=== PATIENT | male | born 1975 | race Caucasian/White ===

== ENCOUNTER 2021-03-08 10:28 | Emergency (ER) | payer SELFPAY ==
[2021-03-08 10:42] VITALS: BP 148/80; PULSE 92; RESP 16; TEMP 36.8; O2SAT 99
--- NOTE | 2021-03-08 11:30 | ED.WOUNDLAC ---
HPI - Wound/Laceration General Chief Complaint: Wound/Laceration Stated Complaint: rt finger inf Time Seen by Provider: 03/08/21 11:06 Source: patient and RN notes reviewed Mode of arrival: ambulatory Limitations: no limitations History of Present Illness HPI narrative: Patient presents today complaining of swelling and pain to the right fourth finger that has been present for 3 days.4 to 5 days ago he had a crack in his fingernail and bit it off. Subsequently he cleaned a very dirty bathtub and believes this may be where the infection came from. Yesterday he stuck a pin in the area to drain fluid. States the fluid was, blood and white gout. States the area filled back up again this morning. He currently rates his pain /10 and has been taking Tylenol and ibuprofen without relief. Related Data Allergies Allergy/AdvReac Type Severity Reaction Status Date / Time codeine Allergy ITCHING, Verified 03/08/21 10:44 RASH Review of Systems Review of Systems: CONSTITUTIONAL: Denies body aches, fever, chills, or sweats. EYES: Denies visual changes, redness, or discharge. ENT: Denies rhinorrhea, congestion, sore throat, or otalgia. CARDIOVASCULAR: Denies chest pain, palpitations, or edema. RESPIRATORY: Denies cough or dyspnea. GASTROINTESTINAL: Denies abdominal pain, nausea, vomiting, or diarrhea. GENITOURINARY: Denies dysuria or hematuria. SKIN: Denies rash, itching, or wounds. MUSCULOSKELETAL: Denies back pain, or myalgia. +Right fourth finger swelling NEUROLOGIC: Denies headache, numbness, tingling, or weakness. PSYCH: Denies depression or anxiety. PMFSH Comments At time of signature, I have reviewed and agree with nursing past medical, surgical, social and family history unless otherwise noted. Please see nursing chart for further information. There is no relevant family history pertinent to the presenting complaint Exam Narrative: GENERAL: Well-appearing, well-nourished, and in no acute distress. HEAD: Normocephalic, atraumatic. EYES: EOMI. No redness or drainage. Conjunctivae normal. ENT: Mucous membranes pink and moist. NECK: Normal AROM. CHEST: No respiratory distress. EXTREMITIES: Right 4th finger: Large fluid-filled, tight abscess to the dorsum of the finger covering the distal and medial phalanx.There is some crusting serous drainage at the edge of the fingernail, as this is likely the source of the infection.Finger is tender to palpation and mildly erythematous.Distal sensation intact. Capillary refill normal. Range of motion is limited due to pain and the very large, fluid-filled abscess. SKIN: Warm, dry, no rash. Capillary refill normal. Normal skin turgor. NEURO: No focal deficits. Alert and oriented x3. Gait steady. PSYCH: Normal affect. No signs of depression or anxiety. Course Vital Signs Vital signs: Vital Signs Temperature 98.2 F 03/08/21 10:42 Pulse Rate 92 03/08/21 10:42 Respiratory Rate 16 03/08/21 10:42 Blood Pressure 148/80 H 03/08/21 10:42 Pulse Oximetry 99 03/08/21 10:42 Temperature 98.2 F 03/08/21 10:42 Pulse Rate 92 03/08/21 10:42 Respiratory Rate 16 03/08/21 10:42 Blood Pressure 148/80 H 03/08/21 10:42 Pulse Oximetry 99 03/08/21 10:42 Reviewed. Pt has been instructed to follow up with his PCP regarding his elevated blood pressure today. Procedures Abscess I/D hand: Date of Incision: 03/08/21 Time of Incision: 11:10 Side (if applicable): right (4th finger) Sedation/analgesia: none Local Anesthetic: none Technique: incised with #11 blade Amount of fluid expressed (mL): 5 Irrigation: No Packing used?: none I&D Results: Pus and Blood Abcess I&D Additional Comments: Dressed with Band-Aid MDM - Wound/Laceration Differential Diagnosis Differential diagnosis: Likely abscess and other (Herpetic jason, felon, Paronychia) Critical Care Time Critical Care Time Critical Care Ti
== END 2021-03-08 11:40 | disposition home or self-care (01) ==
PROVIDERS: Emergency Provider Nurse Practitioner
DX: L02.511 Cutaneous abscess of right hand (principal); Z86.19 Personal history of other infectious and parasitic diseases
CPT/HCPCS: 26010; 99203; G0463